=== PATIENT | male | born 1970 | race Caucasian/White ===

== ENCOUNTER 2017-01-15 15:00 | Inpatient (IN) | payer OTHER ==
--- NOTE | ~2017-01-15 | PN ---
Unit #: [id number] #: [id number] Patient: MALACHI VALENTIN [id number] [facility] [address] [place] [address] [id number] I MR#: [id number] NAME: MALACHI VALENTIN ROOM: P259 Age: 46 Sex: M Admission Date: 01/17/2017 : 1970 Attending Physician: Nicolás Randolph M.D. Admitting Physician: Nicolás Randolph M.D. Primary Care Physician: Generic Doctor Not In System [facility] PROGRESS NOTES DATE OF SERVICE: 01/18/2017 DISCUSSION Mr. Olsen is a 46-year-old male, seen on 01/18/2017. The patient interviewed, chart reviewed, and obtained information from the nursing staff. The patient was compliant, cooperative. Mood is sad, depressed, flat, isolative, guarded, but still very paranoid, delusional, passive SI. REVIEW OF SYSTEMS Complete review of systems unremarkable. MENTAL STATUS EXAMINATION General appearance, the patient dressed casually, lying comfortably in bed, withdrawn, isolative, sad and depressed mood. Speech, monotone. Thought process, concrete. The patient denied any active suicidal ideation, but passive SI, guarded, paranoid, delusional. Recent and remote memory, poor. Insight and judgment, poor. DIAGNOSES Psychosis, not otherwise specified. Schizophrenia, chronic, paranoid type. Major depressive disorder, recurrent. ASSESSMENT AND PLAN Advised to continue with current medication and therapeutic protocol. If needed, consider further adjustment of medication. Dictated by... Tom Nur/marichuy TD: 01/19/2017 11:44 JOB #: [id number] Unit #: [id number] #: [id number] Patient: MALACHI VALENTIN [facility] PROGRESS NOTES Page 1 of 1 X Nicolás Randolph MD PROGRESS NOTE
--- NOTE | ~2017-01-15 | PN ---
Unit #: [id number] #: [id number] Patient: TAMIA ALVARADO [id number] [facility] [address] [place] [address] [id number] I MR#: [id number] NAME: TAMIA ALVARADO ROOM: P259 Age: 46 Sex: M Admission Date: 01/17/2017 : 1970 Attending Physician: Nicolás Randolph M.D. Admitting Physician: Nicolás Randolph M.D. Primary Care Physician: Generic Doctor Not In System [facility] PROGRESS NOTES DATE OF SERVICE 01/20/2017 DISCUSSION Tamia Alvarado is a 46-year-old male seen on 01/20/2017. The patient continues to have psychotic symptom. Guarded, paranoid. Attending to internal stimuli. Delusional, but cooperative. No aggression. Hygiene and grooming fair. Compliant with medication. Complete Review of Systems: Unremarkable. MENTAL STATUS EXAMINATION General Appearance: The patient dressed casually in hospital attire. Attention span, concentration: Poor. Oriented in place and person. Mood and affect labile. Speech: Monotone. Thought process: [place]. The patient denied any thoughts of harming self or others but guarded, delusional, paranoid. Recent and remote memory: Poor. Insight and judgment: Poor. DIAGNOSES 1. Psychosis not otherwise specified. 2. Rule out schizophrenia, chronic, paranoid type. ASSESSMENT/PLAN Advised to continue with current medication and therapeutic protocol. If needed, consider further adjustment of medication. Dictated by... Tom Nur/yashira TD: 01/21/2017 10:17 JOB #: [id number] Unit #: [id number] #: [id number] Patient: TAMIA ALVARADO [facility] PROGRESS NOTES Page 1 of 1 X Nicolás Randolph MD PROGRESS NOTE
--- NOTE | ~2017-01-15 | PN ---
Unit #: [id number] #: [id number] Patient: TAMIA ALVARADO [id number] [facility] [address] [place] [address] [id number] I MR#: [id number] NAME: TAMIA ALVARADO ROOM: P259 Age: 46 Sex: M Admission Date: 01/17/2017 : 1970 Attending Physician: Nicolás Randolph M.D. Admitting Physician: Nicolás Randolph M.D. Primary Care Physician: Generic Doctor Not In System [facility] PROGRESS NOTES DATE 01/22/2017 DISCUSSION Tamia Alvarado is a 46-year-old male seen on 01/22/2017. The patient interviewed, chart reviewed. Obtained information from nursing staff. The patient denied any side effects from medication continues to be isolative, guarded, flat affect, minimal interaction with staff and peer but still somewhat guarded, paranoid but denied any thoughts of harming self or others. Complete review of systems unremarkable. MENTAL STATUS EXAMINATION General appearance, the patient hygiene and grooming poor dressed in hospital attire. Attention span and concentration poor. Oriented to place and person. Mood and affect labile. Speech monotone. Thought process concrete. The patient denied any thoughts of harming self or others but guarded paranoid isolative. Recent and remote memory poor. Insight and judgement poor. DIAGNOSES 1. Psychosis NOS 2. Schizophrenia chronic paranoid type ASSESSMENT/PLAN Advise to continue with current medication and therapeutic protocol. If needed consider further adjustment of medication. Dictated by... Tom Nur/michelle TD: 01/22/2017 23:44 JOB #: [id number] Unit #: [id number] #: [id number] Patient: TAMIA ALVARADO [facility] PROGRESS NOTES Page 1 of 1 X Nicolás Randolph MD PROGRESS NOTE
--- NOTE | ~2017-01-15 | HP ---
Unit #: [id number] #: [id number] Patient: TAMIA VALENTIN [id number] [place] [address] [id number] I MR#: [id number] NAME: TAMIA VALENTIN ROOM: P259 Age: 46 Sex: M Admission Date: 01/17/2017 : 1970 Attending Physician: Nicolás Randolph M.D. Admitting Physician: Nicolás Randolph M.D. Primary Care Physician: Generic Doctor Not In System HISTORY AND PHYSICAL HISTORY OF PRESENT ILLNESS Tamia is a 46 year old admitted to [address] [place] [address] with depression verbalizing wanting to hurt himself. PAST MEDICAL HISTORY 1. High blood pressure. 2. Obesity. 3. Hyperlipidemia. 4. Hypertensive cardiomyopathy. 5. Degenerative disk disease. PAST SURGICAL HISTORY Nothing reported. ALLERGIES No known drug allergies. SOCIAL HISTORY He denies cigarettes, alcohol, and illicit drug use. FAMILY HISTORY Medically noncontributory. REVIEW OF SYSTEMS CONSTITUTIONAL: No fever or chills. HEENT: Denies any sore throat, ear pain or runny nose. CARDIOVASCULAR: Denies chest pain, irregular heart rhythm or palpitations. CHEST: Denies shortness of breath or cough. No hemoptysis. GASTROINTESTINAL: Denies nausea, vomiting, diarrhea or chronic constipation. ENDOCRINE: Denies history of increased thirst or urination. No recent significant weight loss or gain. GENITOURINARY: Denies dysuria, frequency, or hematuria. SKIN: Denies any rashes. HEMATOLOGIC: Denies history of increased bleeding or bruising. MUSCULOSKELETAL: Denies any hot, swollen joints. No generalized muscle pain. NEUROLOGIC: Denies problems with vision or speech. No frequent, severe headaches. No numbness, tingling or weakness in any extremities. Denies loss of bladder or bowel control. CURRENT MEDICATIONS 1. Diovan 320 mg q. day. Unit #: [id number] #: [id number] Patient: TAMIA VALENTIN 2. Chlorthalidone 25 mg q. day. 3. Citalopram 10 mg q. day. 4. Amlodipine 10 mg q. day. 5. Zyprexa 10 mg b.i.d. 6. Normodyne 800 mg b.i.d. 7. Catapres 0.2 mg b.i.d. 8. Vistaril 25 mg t.i.d. 9. Milk of Magnesia p.r.n. 10. Maalox p.r.n. 11. Tylenol p.r.n. PHYSICAL EXAMINATION GENERAL: Alert, well nourished. No apparent distress. VITAL SIGNS: Blood pressure 156/100, heart rate 80, respirations 16, and temperature 98.6. WEIGHT: 210. HEIGHT: 5 feet 9 inches. SKIN: Warm and dry without rash or lesion. HEENT: Normocephalic. TMs not viewed. Oral and nasal passages clear. Conjunctivae clear. PERRLA. EOMs intact. NECK: Supple without lymphadenopathy or thyromegaly. HEART: Regular rate and rhythm without murmur. LUNGS: Clear. ABDOMEN: Soft, nontender. : Not done. EXTREMITIES: No evidence of cyanosis, clubbing or edema. Moves all without focal deficit. NEUROLOGICAL: Grossly within normal limits. Cranial Nerves: II: Visual rodriguez are intact. III, IV AND : Extraocular movements are intact. Pupils are equal, round and reactive to light. V: Facial sensation is grossly normal. VII: Facial movements and expression are normal. VIII: Auditory acuity grossly intact. IX, X: Uvula is midline. Phonation is normal. XI: Patient shrugs shoulders and turns head normally. XII: Tongue protrudes in the midline. Sensory and Motor Function: Sensory and motor sensation is grossly normal. Motor: moves all extremities well. Coordination: Gait is normal. Deep Tendon Reflexes: Intact. IMPRESSION Psychiatric admission. RECOMMENDATIONS PSYCHIATRIC: Per psychiatrist. MEDICAL: I see no contraindication to participate in this facility's activities. MEDICAL PROGNOSIS Good. MEDICAL CONDITION Stable. Dictated by... Tami Duque P.A.-C. for Unit #: [id number] #: [id number] Patient: LIZETTE VALENTINTom Pearl/yashira TD: 01/18/2017 08:16 JOB #: [id number] HISTORY AND PHYSICAL Page 1 of 1 X Tami Duque X HISTORY AND PHYSICAL
--- NOTE | ~2017-01-15 | DS ---
Unit #: [id number] #: [id number] Patient: MALACHI VALENTIN [id number] [place] [address] [id number] I MR#: [id number] NAME: MALACHI VALENTIN ROOM: P259 Age: 46 Sex: M Admission Date: 01/17/2017 : 1970 Discharge Date: 01/24/2017 Attending Physician: Nicolás Randolph M.D. Primary Care Physician: Generic Doctor Not In System DISCHARGE SUMMARY REASON FOR ADMISSION Depression, hearing voices. DIAGNOSTIC STUDIES LABORATORY DATA: Remarkable for urine drugs screen positive for opiate. HOSPITAL COURSE The patient was admitted to inpatient unit on January 17 and discharged on 01/24/2017. The patient was treated on the inpatient unit with psychotherapy, structured milieu, and medication management. The patient was responsive with treatment. Showed improvement in his mood and voices. Subsequently, the patient was discharged with a plan to follow up in outpatient program. DISCHARGE MEDICATIONS 1. Vistaril 25 mg 3 times a day for anxiety. 2. Zyprexa 10 mg twice daily for psychosis. 3. Haldol 5 mg twice daily for psychosis. 4. Cogentin 1 mg twice daily for EPS symptom. 5. Celexa 20 mg daily for depression. 6. The patient was discharged on 2 antipsychotics as the patient did not do well on one. The patient was started on Zyprexa, Haldol, and Risperdal in the past. 7. The patient plans to taper off Haldol once the patient is stable for at least 6 months. The patient is not a candidate for Clozaril at this time. DISCHARGE DIAGNOSES PSYCHIATRIC: Schizophrenia, chronic, paranoid type, F20.0 Mood disorder not otherwise specified, F32.9. SECONDARY: Deferred. MEDICAL: Malignant hypertension. Obesity. Hyperlipidemia. Hypertensive cardiomyopathy. Degenerative disk disease. STRESSORS: Psychosocial stressor. FOLLOWUP CARE The patient to follow up in outpatient clinic as per manager social work. CONDITION ON DISCHARGE The patient pleasant, cooperative. Denied any psychotic symptom or any suicidal ideation. Unit #: [id number] #: [id number] Patient: MALACHI VALENTIN PROGNOSIS Guarded. DIET AND ACTIVITY As tolerated. Dictated by... Nicolás Randolph M.D. ERENDIRA/yashira TD: 01/25/2017 11:54 JOB #: [id number] DISCHARGE SUMMARY Page 1 of 1 X Nicolás Randolph MD DISCHARGE SUMMARY
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
--- NOTE | ~2017-01-15 | PN ---
Unit #: [id number] #: [id number] Patient: TAMIA VALENTIN [id number] [facility] [address] [place] [address] [id number] MR#: [id number] NAME: TAMIA VALENTIN ROOM: P259 Age: 46 Sex: M Admission Date: 01/17/2017 : 1970 Attending Physician: Nicolás Randolph M.D. Admitting Physician: Nicolás Randolph M.D. Primary Care Physician: Generic Doctor Not In System [facility] PROGRESS NOTES DATE OF SERVICE 01/23/17 DISCUSSION Tamia is a 46-year-old male seen on 01/23/17. Patient interviewed, chart reviewed, I obtained information from nursing staff. Patient is still somewhat guarded, paranoid but overall making progress. Patient was sent out yesterday for increased blood pressure, for which he was monitored and advised to continue with the same medication. Patient's blood pressure was high 200/150, and later 200/112 but later dropped down to 113/89. COMPLETE REVIEW OF SYSTEMS Unremarkable. MENTAL STATUS EXAMINATION GENERAL APPEARANCE: Patient dressed casually. ATTENTION SPAN AND CONCENTRATION: Fair. Oriented in place and person. MOOD AND AFFECT: Sad, dysphoric. SPEECH: Monotone. THOUGHT PROCESS: [place]. Patient denied any thoughts of harming self or others, but still having paranoia, seclusive, isolative but denied any kind of hallucination. RECENT AND REMOTE MEMORY: Poor. INSIGHT AND JUDGMENT: Poor. DIAGNOSIS Schizophrenia, chronic, paranoid type ASSESSMENT/PLAN Advised to continue with current medication and therapeutic protocol. If needed, consider further adjustment in medication. Dictated by... Tom Nur/sandor TD: 01/23/2017 23:31 JOB #: [id number] Unit #: [id number] #: [id number] Patient: TAMIA VALENTIN [facility] PROGRESS NOT[facility] Page 1 of 1 X Nicolás Randolph MD PROGRESS NOTE
--- NOTE | ~2017-01-15 | PN ---
Unit #: [id number] #: [id number] Patient: TAMIA ALVARADO [id number] [facility] [address] [place] [address] [id number] I MR#: [id number] NAME: TAMIA ALVARADO ROOM: P259 Age: 46 Sex: M Admission Date: 01/17/2017 : 1970 Attending Physician: Nicolás Randolph M.D. Admitting Physician: Nicolás Randolph M.D. Primary Care Physician: Generic Doctor Not In System [facility] PROGRESS NOTES DATE OF SERVICE 01/21/2017 DISCUSSION Mr. Tamia Alvarado is a 46-year-old male seen on 01/21/2017. The patient interviewed, chart reviewed. Obtained information from nursing staff. The patient continues to be isolative, guarded, flat affect. Still paranoid, delusional, but no aggression. Still sad, depressed, and anxious. Complete Review of Systems: Unremarkable. MENTAL STATUS EXAMINATION General Appearance: The patient dressed casually in hospital attire. Attention span, concentration: Fair. Oriented in place and person. Mood and affect labile. Speech: Monotone. Thought process: [place]. The patient denied any thoughts of harming self or others but guarded, withdrawn, isolative, delusional, paranoid. Recent and remote memory: Poor. Insight and judgment: Poor. DIAGNOSIS Schizophrenia, chronic, paranoid type. ASSESSMENT/PLAN Advised to continue with current medication and therapeutic protocol. If needed, consider further adjustment of medication. Dictated by... Tom Nur/yashira TD: 01/22/2017 07:59 JOB #: [id number] Unit #: [id number] #: [id number] Patient: TAMIA ALVARADO [facility] PROGRESS NOT[facility] Page 1 of 1 X Nicolás Randolph MD PROGRESS NOTE
--- NOTE | ~2017-01-15 | PN ---
Unit #: [id number] #: [id number] Patient: TAMIA ALVARADO [id number] [facility] [address] [place] [address] [id number] I MR#: [id number] NAME: TAMIA ALVARADO ROOM: P259 Age: 46 Sex: M Admission Date: 01/17/2017 : 1970 Attending Physician: Nicolás Randolph M.D. Admitting Physician: Nicolás Randolph M.D. Primary Care Physician: Generic Doctor Not In System [facility] PROGRESS NOTES DATE OF SERVICE: 01/19/2017 DISCUSSION Mr. Tamia Alvarado is a 46-year-old male, seen on 01/19/2017. The patient interviewed, chart reviewed, and obtained information from nursing staff. The patient continues to be guarded, paranoid, isolative, flat affect, sad, dysphoric mood, using wheelchair to go around. The patient denied any side effects from medication. REVIEW OF SYSTEMS Complete review of systems unremarkable. MENTAL STATUS EXAMINATION General appearance; the patient's hygiene and grooming were poor. Attention span and concentration, fair. Oriented in place and person. Mood and affect, labile. Speech, monotone. Thought process, concrete. The patient denied any thoughts of harming self or others, but guarded and paranoid. Recent and remote memory, poor. Insight and judgment, poor. DIAGNOSES 1. Psychosis, not otherwise specified. 2. Rule out schizophrenia, chronic paranoid type. ASSESSMENT/PLAN Advised to continue with current medication and therapeutic protocol. If needed, consider further adjustment of medication. Dictated by... Tom Nur/marichuy TD: 01/21/2017 00:35 JOB #: [id number] Unit #: [id number] #: [id number] Patient: TAMIA ALVARADO PROGRESS NOTES Page 1 of 1 X Nicolás Randolph MD PROGRESS NOTE
[2017-01-18 09:42] LABS: URINE APPEARANCE CLEAR; URINE BILIRUBIN NEG (NEG); URINE BLOOD NEG (NEG); URINE COLOR YELLOW; URINE GLUCOSE NEG (NEG); URINE KETONE NEG (NEG); URINE LEUKOCYTE ESTERASE NEG (NEG); URINE NITRATE NEG (NEG); URINE PROTEIN NEG (NEG); URINE SPECIFIC GRAVITY 1.023 (1.003-1.035); URINE UROBILINOGEN 0.2 MG/DL (NEG)
[2017-01-18 10:40] LABS: AMPHETAMINE NEG (NEG); BARBITURATES NEG (NEG); BENZODIAZEPINES NEG (NEG); COCAINE NEG (NEG); MARIJUANA NEG (NEG); OPIATES POS (NEG); TRICYCLIC ANTIDEPRESSANTS NEG (NEG); U METHADONE NEG (NEG)
[2017-01-23] MEDS ORDERED: CLONIDINE PO (01:31)
[2017-01-23] MEDS ORDERED: NORVASC10 MG PO (01:31)
[2017-01-23] MEDS ORDERED: CHLORTHALIDONE25 MG PO (01:31)
[2017-01-23] MEDS ORDERED: NORMODYNE PO (01:32)
[2017-01-23] MEDS ORDERED: DIOVAN320 MG PO (01:32)
[2017-01-23] MEDS ORDERED: VISTARIL PO (01:32)
[2017-01-23] MEDS ORDERED: ZYPREXA10 MG PO (01:32)
[2017-01-23] MEDS ORDERED: HALDOL PO (01:33)
[2017-01-23] MEDS ORDERED: CELEXA20 MG PO (01:33)
[2017-01-23] MEDS ORDERED: COGENTIN1 MG PO (01:33)
== END 2017-01-24 14:55 | disposition home or self-care (01) | DRG 885 ==
LOC: P2L 01-17 12:49
PROVIDERS: Psychiatry & Neurology Psychiatry
DX: F20.0 Paranoid schizophrenia (principal); F33.2 Major depressive disorder, recurrent severe without psychotic features; I11.9 Hypertensive heart disease without heart failure; I10 Essential (primary) hypertension; F39 Unspecified mood [affective] disorder; E66.9 Obesity, unspecified; E78.5 Hyperlipidemia, unspecified
CPT/HCPCS: 80307; 81003

== ENCOUNTER 2017-01-23 01:08 | Emergency (ER) | payer OTHER ==
--- NOTE | ~2017-01-23 | EKG ---
PATIENT: MALACHI VALENTIN UNIT #: [id number] Ventricular Rate: 69 BPM Atrial Rate: 69 BPM P-R Interval: 178 ms QRS Duration: 98 ms Q-T Interval: 430 ms QTC Calculation(Bezet): 460 ms P Townsend: 22 degrees Calculated R Townsend: -10 degrees Calculated T Townsend: 25 degrees Diagnosis Line: Normal sinus rhythm Diagnosis Line: Normal ECG Diagnosis Line: No previous ECGs available Diagnosis Line: Confirmed by BRI ZIMMERMAN MD ([id number]) on Diagnosis Line: 01/23/2017 10:46:35 PM INTERPRETING MD: ALVARO
--- NOTE | ~2017-01-23 | CR72 ---
[facility] A Service of [facility] & [facility] RADIOLOGY TEXT RESULTS PATIENT: MALACHI VALENTNI LOCATION: [facility] : [birth year] UNIT #: [id number] AGE: [address]: Tami Perez APRN SEX: M ORDER DR: [id number] [facility] [address] [place], [place] [address] [id number] MR#: [id number] Acc #: [id number] NAME: MALACHI VALENTIN : 1970 SEX: M STUDY DATE/TIME: 01/23/2017 1:58 UNIT: [facility] ROOM: STUDY DESCRIPTION: CR Chest Single View Portable Attending Physician: Tami Perez A.P.R.N. Ordering Physician: Tami Perez A.P.R.N. Primary Care Physician: Generic Doctor Not In System MEDICAL IMAGING REPORT This report is preliminary unless electronic signature is present EXAM Portable chest INDICATION Hypertension today. PROCEDURE Frontal view chest. COMPARISON 01/03/2017 FINDINGS Heart size unremarkable. No dense consolidation, pleural fluid or pneumothorax. IMPRESSION No active process. Dictated by... uT Chavira M.D. THIS IS AN ELECTRONICALLY VERIFIED REPORT Tu Chavira M.D. at 01/23/2017 10:21 PM TAYLOR/charu TD: 01/23/2017 04:04 JOB #: [id number] MEDICAL IMAGING REPORT Page 1 of 1 COPY
[2017-01-23] MEDS ORDERED: CLONIDINE PO (01:31)
[2017-01-23] MEDS ORDERED: NORVASC10 MG PO (01:31)
[2017-01-23] MEDS ORDERED: CHLORTHALIDONE25 MG PO (01:31)
[2017-01-23] MEDS ORDERED: NORMODYNE PO (01:32)
[2017-01-23] MEDS ORDERED: DIOVAN320 MG PO (01:32)
[2017-01-23] MEDS ORDERED: ZYPREXA10 MG PO (01:32)
[2017-01-23] MEDS ORDERED: VISTARIL PO (01:32)
[2017-01-23] MEDS ORDERED: CELEXA20 MG PO (01:33)
[2017-01-23] MEDS ORDERED: COGENTIN1 MG PO (01:33)
[2017-01-23] MEDS ORDERED: HALDOL PO (01:33)
[2017-01-23 03:02] LABS: POC - CKMB <1.0 ng/mL (0.0-7.9); POC - TROPONIN <0.05 ng/mL (<=0.05)
[2017-01-23 03:13] LABS: BASOPHIL% 0.7 % (0-2.5); EOSINOPHIL# 0.3 X10e3 (0-0.7); EOSINOPHIL% 4.6 % (0.0-7.0); HEMATOCRIT 38.1 % (38.0-50.0); HEMOGLOBIN 12.8 gm/dL (13.0-16.0); LYMPHOCYTE# 2.3 X10e3 (1.0-3.5); LYMPHOCYTE% 38.8 % (17.0-45.0); MEAN CELL VOLUME 86.6 FL (83-96); MEAN CORPUSCULAR HGB CONC 33.5 g/dL (30-36); MEAN PLATELET VOLUME 7.7 FL (6.5-11.5); MONOCYTE# 0.6 X10e3 (0-1.0); MONOCYTE% 9.4 % (3.0-12.0); NEUTROPHIL# 2.8 X10e3 (1.5-7.1); NEUTROPHIL% 46.5 % (40-75); PLATELET COUNT 233 X10e3 (140-420); RED CELL DISTRIBUTION WIDTH 13.7 % (11.0-15.5)
[2017-01-23 03:14] LABS: DIFF IND NO
[2017-01-23 03:36] LABS: ALBUMIN SERUM 3.8 g/dL (3.5-5.0); BILIRUBIN, DIRECT 0.1 mg/dL (0.0-0.2); BILIRUBIN,INDIRECT 0.4 mg/dL (0.0-0.9); BILIRUBIN,TOTAL 0.5 mg/dL (0.2-2.0); GLOM FILT RATE Estimated 89.2 mL/min (>60); POTASSIUM 3.7 mmol/L (3.5-5.1); PROTEIN TOTAL SERUM 6.7 g/dL (6.0-8.3)
== END 2017-01-23 04:00 | disposition short-term general hospital (02) ==
LOC: CED 01:08
PROVIDERS: Nurse Practitioner
DX: I10 Essential (primary) hypertension (principal); F41.9 Anxiety disorder, unspecified
CPT/HCPCS: 36415; 71010; 80048; 80076; 82553; 83690; 84484; 85025; 93005; 99285

== ENCOUNTER 2017-01-26 18:03 | Inpatient (IN) | payer OTHER ==
--- NOTE | ~2017-01-26 | PN ---
Unit #: [id number] #: [id number] Patient: MALACHI ALVARADO [id number] [facility] [address] [place] [address] [id number] I MR#: [id number] NAME: MALACHI ALVARADO ROOM: [facility] Age: 46 Sex: M Admission Date: 01/26/2017 : 1970 Attending Physician: Nioclás Randolph M.D. Admitting Physician: Nicolás Randolph M.D. Primary Care Physician: Generic Doctor Not In System [facility] PROGRESS NOTES DATE 01/30/2017 DISCUSSION Mr. Alvarado is a 46-year-old, white male who was seen today and chart was reviewed and case was discussed with the staff. He has been anxious, withdrawn, depressed and rather seclusive to himself. Meanwhile, he has been taking medications and tolerating them fairly well with no reported side effects. MENTAL STATUS EXAM Middle-aged white male who was casually dressed with fair personal hygiene, appears to be in no acute distress or discomfort. He was awake and alert on interaction with intact orientation. His mood was anxious with congruent affect. He denies any suicidal or homicidal ideation. His insight and judgement remains slightly impaired. TREATMENT PLAN We will continue him on his current treatment protocol. We will monitor his response and make further adjustments as needed. Dictated by... Tom Thomas/michelle TD: 02/01/2017 03:29 JOB #: [id number] [facility] PROGRESS NOTES Page 1 of 1 X Fani Moreland MD X PROGRESS NOTE
--- NOTE | ~2017-01-26 | PA ---
Unit #: [id number] #: [id number] Patient: TAMIA ALVARADO [id number] [facility] [address] [place] [address] [id number] I MR#: [id number] NAME: TAMIA ALVARADO ROOM: [facility] Age: 46 Sex: M Admission Date: 01/26/2017 : 1970 Date of Assessment: 01/27/2017 Attending Physician: Nicolás Randolph M.D. Admitting Physician: Nicolás Randolph M.D. Primary Care Physician: Generic Doctor Not In System PSYCHIATRIC ASSESSMENT INFORMANTS The patient reliability, fair informant and chart reliability, good. CHIEF COMPLAINT Suicidal ideation and hallucination. HISTORY OF PRESENT ILLNESS Mr. Tamia Alvarado is a 46-year-old male, seen on with the above-mentioned complaint. The patient well known to us from his previous admission. The patient was last admitted on 01/15/2017 and the patient was discharged on 01/24/2017, admitted due to above-mentioned symptoms. The patient reports that he never got his medication filled. Reports that he has been off from medication for the last 2 days. Reported experiencing paranoia and that his brother's friends are going to kill him to obtain his organs. The patient reports that his brother is in hell and needs the patient's heart to resuscitate. The patient reports that the brother talks to him in his dreams as well as when he is awake. The patient reports that his brother tells him to kill himself. The patient reports suicidal ideation with a plan to overdose on the pills or cut his wrist. Needing inpatient admission at this time for psychiatric stabilization. PAST PSYCHIATRIC HISTORY Remarkable for history of previous treatment, last admission was on 01/18/2017. FAMILY HISTORY AND SOCIAL HISTORY The patient has a poor support system. Currently, unemployed. Unstable housing situation. No known history of any abuse. MEDICAL HISTORY Remarkable for history of malignant hypertension, obesity, hyperlipidemia, hypertensive cardiomyopathy, and degenerative disk disease. Musculoskeletal; muscle strength and tone, no atrophy or abnormal movement. Gait abnormal, using a wheelchair. MEDICATION HISTORY The patient is on Zanaflex, Normodyne, Catapres, Cogentin, haloperidol, Zyprexa, Vistaril, Diovan, amlodipine, Celexa, and chlorthalidone. ALLERGIES No known drug allergies. Unit #: [id number] #: [id number] Patient: TAMIA ALVARADO SUBSTANCE ABUSE HISTORY None. REVIEW OF SYSTEMS HEENT: Eyes, clear. Ears, nose, mouth, and throat; clear. CARDIOVASCULAR: Unremarkable. RESPIRATORY: Unremarkable. GI: Unremarkable. : Unremarkable. SKIN: Unremarkable. LYMPH NODE: Unremarkable. NEUROLOGIC: Unremarkable. ENDOCRINE: Unremarkable. HEMATOLOGIC: Unremarkable. ALLERGIC/IMMUNOLOGIC: Unremarkable. MUSCULOSKELETAL: Muscle strength and tone, no atrophy or abnormal movement. Gait normal. MENTAL STATUS EXAMINATION CONSTITUTIONAL: Measurement of vital signs; temperature 98.4, respiratory rate 74, respiratory rate 16, oxygen saturation 97%, and blood pressure 143/87. Height 5 feet 9 inches and weight 212 pounds. GENERAL APPEARANCE: The patient dressed casually. No facial deformity noted. MUSCULOSKELETAL: Please see above. PSYCHIATRIC EXAMINATION Description of speech, slow in volume and rate. Description of thought process, goal directed. Description of association, intact. Description of abnormal psychotic thinking; guarded, paranoid, delusional, visual and auditory hallucination, and suicidal ideation. Description of the patient's judgment: Concerning everyday activity, poor. Social situation, poor. Concerning psychiatric condition, poor. Complete mental status examination; oriented in time, place, and person. Recent and remote memory, fair. Attention span and concentration, fair. Language, able to name object and repeat phrases. Fund of knowledge, aware of current event and passive vocabulary intact. Mood and affect, sad and dysphoric. Insight and judgment, fair to poor. ASSETS AND LIABILITIES Assets, the patient is articulate and able to take care of his ADL. Liability, history of psychosis and depression. ADMITTING DIAGNOSES Psychiatric: Schizophrenia, chronic paranoid type, F20.0; mood disorder, not otherwise specified; rule out major depressive disorder, recurrent, severe; and rule out bipolar mood disorder. Secondary diagnosis: Deferred. Medical diagnoses: Malignant hypertension, obesity, hyperlipidemia, hypertensive cardiomyopathy, and degenerative disk disease. Stressors: Psychosocial stressors. PSYCHIATRIC PLAN AND TREATMENT GOAL AND DISCHARGE PLAN 1. Advised to admit the patient on the inpatient unit. Provide safe, Unit #: [id number] #: [id number] Patient: TAMIA ALVARADO supportive, and structured environment. 2. Ordered labs; CBC, CMP, UA, and UDS. 3. Precaution for self-harm and special observation for psychosis. 4. Advised to resume home medication. If needed, consider further adjustment of medication. The patient to attend all the programing, group therapy, individual therapy, and family session if possible. TREATMENT GOAL To attain euthymic mood, gain insight into his problem, and learn coping skills. DISCHARGE PLAN Plan to stabilize the patient and consider followup in outpatient program. ESTIMATED LENGTH OF STAY 5 days. Dictated by... Nicolás Randolph M.D. ERENDIRA/marichuy TD: 01/27/2017 15:58 JOB #: [id number] PSYCHIATRIC ASSESSMENT Page 1 of 1 X Nicolás Randolph MD X PSYCHIATRIC ASSESSMENT
--- NOTE | ~2017-01-26 | PN ---
Unit #: [id number] #: [id number] Patient: MALACHI ALVARADO [id number] [facility] [address] [place] [address] [id number] I MR#: [id number] NAME: MALACHI ALVARADO ROOM: [facility] Age: 46 Sex: M Admission Date: 01/26/2017 : 1970 Attending Physician: Nicolás Randolph M.D. Admitting Physician: Nicolás Randolph M.D. Primary Care Physician: Generic Doctor Not In System [facility] PROGRESS NOTES DATE OF SERVICE 01/28/2017 DISCUSSION Edjoan Alvarado is a 46-year-old white male with history of mood disorder who was seen today. Chart was reviewed and case was discussed with the staff. He has been anxious and withdrawn though has not shown any agitation or irritability and has been cooperative with treatment recommendations as he has been taking the medications and tolerating them fairly well with no reported side effects. MENTAL STATUS EXAMINATION Middle-aged white male who is casually dressed with fair personal hygiene, appears to be in no acute distress or discomfort. He was awake and alert with intact orientation. His mood is anxious with congruent affect. He denies any suicidal or homicidal ideations. His insight and judgment remain slightly impaired. TREATMENT PLAN 1. We will continue him on his current medications and treatment protocol. We will monitor his response to the medications and make further adjustments as needed. 2. We will continue to follow up. Dictated by... Fani Moreland M.D. IAA/bzg TD: 01/28/2017 14:32 JOB #: [id number] Unit #: [id number] #: [id number] Patient: MALACHI ALVARADO [facility] PROGRESS NOTES Page 1 of 1 X Fani Moreland MD X PROGRESS NOTE
--- NOTE | ~2017-01-26 | PN ---
Unit #: [id number] #: [id number] Patient: MALACHI ALVARADO [id number] [facility] [address] [place] [address] [id number] I MR#: [id number] NAME: MALACHI ALVARADO ROOM: [facility] Age: 46 Sex: M Admission Date: 01/26/2017 : 1970 Attending Physician: Nicolás Randolph M.D. Admitting Physician: Nicolás Randolph M.D. Primary Care Physician: Generic Doctor Not In System [facility] PROGRESS NOTES DATE February 03, 2017 DISCUSSION Mr. Alvarado is a 46-year-old white male, who was seen today and chart was reviewed and the case was discussed with the staff. He has been anxious, withdrawn, and rather seclusive to himself. Meanwhile, he has been cooperative with the treatment recommendations and he has been taking the medications and tolerating them fairly well with no reported side effects. MENTAL STATUS EXAMINATION Middle-aged white male, who was casually dressed with fair personal hygiene and appears to be in no acute distress or discomfort. He was awake and alert on interaction with intact orientation. His mood is anxious with a congruent affect. His speech is slow and goal-directed. He denies any suicidal or homicidal ideations. His insight and judgment remain slightly impaired. TREATMENT PLAN 1. We will continue him on his current medications and treatment protocol, and will monitor his response to the medications, and make further adjustments as needed. 2. We will continue to followup. Dictated by... Tom Thomas/josue TD: 02/03/2017 09:47 JOB #: [id number] Unit #: [id number] #: [id number] Patient: MALACHI ALVARADO [facility] PROGRESS NOTES Page 1 of 1 X Fani Moreland MD PROGRESS NOTE
--- NOTE | ~2017-01-26 | HP ---
Unit #: [id number] #: [id number] Patient: MALACHI VALENTIN [id number] [place] [address] [id number] I MR#: [id number] NAME: MALACHI VALENTIN ROOM: [facility] Age: 46 Sex: M Admission Date: 01/26/2017 : 1970 Attending Physician: Nicolás Randolph M.D. Admitting Physician: Nicolás Randolph M.D. Primary Care Physician: Generic Doctor Not In System HISTORY AND PHYSICAL Edjoan is a 46 year old admitted to [address] [place] [address]. He was just discharged from this facility. He did not fill his psychiatric medications that were prescribed to him at the time of his discharge. Patient was seen and H and P dated 01/17/17 was reviewed. This is current. No changes. Please see H and P dated 01/17/17. Dictated by... Tami Duque P.A.-C. for Tom Bagley/gris TD: 01/27/2017 16:25 JOB #: [id number] HISTORY AND PHYSICAL Page 1 of X Tami Duque HISTORY AND PHYSICAL
--- NOTE | ~2017-01-26 | PN ---
Unit #: [id number] #: [id number] Patient: MALACHI ALVARADO [id number] [facility] [address] [place] [address] [id number] I MR#: [id number] NAME: MALACHI ALVARADO ROOM: [facility] Age: 46 Sex: M Admission Date: 01/26/2017 : 1970 Attending Physician: Nicolás Randolph M.D. Admitting Physician: Nicolás Randolph M.D. Primary Care Physician: Generic Doctor Not In System [facility] PROGRESS NOTES DATE January 31, 2017 DISCUSSION Mr. Alvarado is a 46-year-old white male, who was seen today, in coverage for Dr. Randolph, and chart was reviewed and the case was discussed with the staff. Staff called me yesterday stating that the patient was trying to hang himself with bed sheets, and has been seclusive, isolative, and not opening up until he was caught attempting suicide and since then he has been moved to a private camera monitored room and suicide precautions have been elevated as he reports that he does not feel that the medications have been helping him, and a review of the medical records indicates that he is taking quite a few of psychotropic medications including antipsychotic medications and has been blunting his affect and not letting his depression to be any better. He denies any suicidal thoughts; however, this morning, and I will go ahead and review his medications and adjust the medications and recommend maintaining Zyprexa and discontinuing Haldol and Cogentin, and increase his Celexa from 20 to 40 mg a day and will monitor his response, and make further adjustments as needed. Dictated by... Tom Thomas/josue TD: 02/01/2017 08:46 JOB #: [id number] [facility] PROGRESS NOTES Page 1 of 1 X Fani Moreland MD PROGRESS NOTE
--- NOTE | ~2017-01-26 | PN ---
Unit #: [id number] #: [id number] Patient: MALACHI ALVARADO [id number] [facility] [address] [place] [address] [id number] I MR#: [id number] NAME: MALACHI ALVARADO ROOM: [facility] Age: 46 Sex: M Admission Date: 01/26/2017 : 1970 Attending Physician: Nicolás Randolph M.D. Admitting Physician: Nicolás Randolph M.D. Primary Care Physician: Generic Doctor Not In System [facility] PROGRESS NOTES DATE February 01, 2017 DISCUSSION Mr. Alvarado is a 46-year-old white male, who was seen today and chart was reviewed and the case was discussed with the staff. He has been anxious, withdrawn, and rather seclusive to himself. Meanwhile, he has been cooperative with the treatment recommendations, and he has been exhibiting some persistent depressive symptoms. MENTAL STATUS EXAMINATION Middle-aged white male, who was casually dressed with fair personal hygiene and appears to be in no acute distress or discomfort. He was awake and alert on interaction with intact orientation. His mood is anxious with a congruent affect. He denies any suicidal or homicidal ideations, and also denies any auditory or visual hallucinations. His insight and judgment remain slightly impaired. TREATMENT PLAN We will continue him on his current medications and treatment protocol, and will monitor his response to the medications, and make further adjustments as needed. Dictated by... Tom Thomas/josue TD: 02/02/2017 10:59 JOB #: [id number] [facility] PROGRESS NOTES Page 1 of 1 X Fani Moreland MD PROGRESS NOTE
--- NOTE | ~2017-01-26 | DS ---
Unit #: [id number] #: [id number] Patient: [facility]VARADO [id number] [facility] [address] [place] [address] [id number] I MR#: [id number] NAME: MALACHI ALVARADO ROOM: [facility] Age: 46 Sex: M Admission Date: 01/26/2017 : 1970 Discharge Date: 02/04/2017 Attending Physician: Nicolás Randolph M.D. Primary Care Physician: Generic Doctor Not In System DISCHARGE SUMMARY IDENTIFICATION DATA Mr. Alvarado is a 46-year-old white male who was self-referred to the hospital. DISCHARGE DIAGNOSES PSYCHIATRIC: Schizoaffective disorder bipolar type, most recent episode, depressed, recurrent, moderate, without psychotic features. MEDICAL: None. STRESSORS: Moderate psychosocial stressors. HISTORY OF PRESENT ILLNESS Same as in initial psychiatric evaluation. PAST PSYCHIATRIC HISTORY Same as in initial psychiatric evaluation. PAST MEDICAL HISTORY Same as in initial psychiatric evaluation. HOSPITAL COURSE The patient was admitted to the adult psychiatric unit at [facility] sara Fowler and was oriented to the hospital environment. Routine p.r.n. medications were initiated, and he was started back on his home medications. Medications were adjusted, and he was closely monitored. He was taking the medications regularly and was tolerating them fairly well and able to show a decent therapeutic response with improvement in depression and anxiety. As such it was decided that he will be discharged, and we will continue treatment on outpatient basis. CONDITION AT DISCHARGE Stable. PROGNOSIS Fair. Dictated by... Tom Thomas/yashira TD: 02/26/2017 13:46 JOB #: [id number] Unit #: [id number] #: [id number] Patient: MALACHI ALVARADO DISCHARGE SUMMARY Page 1 of 1 X Fani Moreland MD X DISCHARGE SUMMARY
--- NOTE | ~2017-01-26 | PN ---
Unit #: [id number] #: [id number] Patient: MALACHI ALVARADO [id number] [facility] [address] [place] [address] [id number] I MR#: [id number] NAME: MALACHI ALVARADO ROOM: [facility] Age: 46 Sex: M Admission Date: 01/26/2017 : 1970 Attending Physician: Nicolás Randolph M.D. Admitting Physician: Nicolás Randolph M.D. Primary Care Physician: Generic Doctor Not In System [facility] PROGRESS NOTES DATE 02/02/2017 DISCUSSION Mr. Alvarado is a 46-year-old white male who was seen today and chart was reviewed and case was discussed with the staff. He has been anxious, withdrawn and rather seclusive to himself. Meanwhile, he has been cooperative with treatment recommendations and taking medications and tolerating them fairly well with no reported side effects. MENTAL STATUS EXAMINATION Middle-aged white male who was casually dressed with fair personal hygiene and appears to be in no acute distress or discomfort. He was awake and alert on interaction with intact orientation. His mood was anxious with congruent affect. He denies any suicidal or homicidal ideation. His insight and judgement remains slightly impaired. TREATMENT PLAN 1. Will continue his current medications and treatment protocol as well as level of precautions. Will monitor his response and make further adjustments as needed. 2. Will continue to follow up. Dictated by... Fani Moreland M.D. STAN/gris TD: 02/02/2017 20:14 JOB #: [id number] Unit #: [id number] #: [id number] Patient: MALACHI ALVARADO [facility] PROGRESS NOTES Page 1 of 1 X Fani Moreland MD X PROGRESS NOTE
--- NOTE | ~2017-01-26 | PN ---
Unit #: [id number] #: [id number] Patient: MALACHI ALVARADO [id number] [facility] [address] [place] [address] [id number] I MR#: [id number] NAME: MALACHI ALVARADO ROOM: [facility] Age: 46 Sex: M Admission Date: 01/26/2017 : 1970 Attending Physician: Nicolás Randolph M.D. Admitting Physician: Nicolás Randolph M.D. Primary Care Physician: Generic Doctor Not In System [facility] PROGRESS NOTES DATE 01/29/2017 DISCUSSION Mr. Alvarado is a 46-year-old white male who was seen today and chart was reviewed and case was discussed with the staff. He has been anxious, withdrawn, depressed and rather seclusive to himself. Meanwhile, he has been cooperative with treatment recommendations and has been taking medications and tolerating them fairly well with no reported side effects. MENTAL STATUS EXAMINATION Middle-aged white male who was casually dressed with fair personal hygiene and appears to be in no acute distress or discomfort. He was awake and alert with intact orientation. His mood was anxious with congruent affect. He denies any suicidal or homicidal ideations. His insight and judgement remains slightly impaired. TREATMENT PLAN 1. Will continue on his current medications and treatment protocol. Will monitor his response to the medications and make further adjustments as needed. 2. Will continue to follow up. Dictated by... Fani Moreland M.D. IAA/gris TD: 01/29/2017 21:50 JOB #: [id number] Unit #: [id number] #: [id number] Patient: MALACHI ALVARADO [facility] PROGRESS NOTES Page 1 of 1 X Fani Moreland MD X PROGRESS NOTE
--- NOTE | ~2017-01-26 | PN ---
Unit #: [id number] #: [id number] Patient: TAMIA ALVARADO [id number] [facility] [address] [place] [address] [id number] I MR#: [id number] NAME: TAMIA ALVARADO ROOM: [facility] Age: 46 Sex: M Admission Date: 01/26/2017 : 1970 Attending Physician: Nicolás Randolph M.D. Admitting Physician: Nicolás Randolph M.D. Primary Care Physician: Generic Doctor Not In System [facility] PROGRESS NOTES DATE OF SERVICE 01/27/2017 DISCUSSION Tamia Alvarado is a 46-year-old male seen on 01/27/2017. The patient continues to report hearing voices, paranoia, suicidal ideation, withdrawn, isolative, sad, dysphoric. Needing prompts to take care of his ADL as well as to attend group. Complete Review of Systems: Unremarkable. MENTAL STATUS EXAMINATION General Appearance: The patient dressed casually. Attention span, concentration: Fair. Oriented in time, place, and person. Mood and affect: Sad, depressed, withdrawn. Speech: Monotone. Thought process: [place]. The patient reported having suicidal ideation, paranoia, and delusions, auditory or visual hallucinations. Recent and remote memory: Poor. Insight and judgment: Poor. Vital Signs: 98.4, 83, 16, 192/99. Height: 5 feet 9 inches. Weight: 212 pounds. DIAGNOSES 1. Psychosis not otherwise specified. 2. Rule out schizophrenia, chronic, paranoid type. 3. Rule out bipolar mood disorder not otherwise specified. ASSESSMENT/PLAN Advised to continue with current medication and therapeutic protocol. If needed, consider further adjustment of medication. Dictated by... Tom Nur/yashira TD: 01/27/2017 13:51 JOB #: [id number] Unit #: [id number] #: [id number] Patient: TAMIA ALVARADO PROGRESS NOTES Page 1 of 1 X Nicolás Randolph MD PROGRESS NOTE
[~2017-01-26 18:03] MED LIST: CELEXA20 MG PO; CHLORTHALIDONE25 MG PO; CLONIDINE PO; COGENTIN1 MG PO; DIOVAN320 MG PO; HALDOL PO; NORMODYNE PO; NORVASC10 MG PO; VISTARIL PO; ZYPREXA10 MG PO
== END 2017-02-04 00:56 | disposition short-term general hospital (02) | DRG 885 ==
LOC: P1S 19:20
DX: F20.0 Paranoid schizophrenia (principal); F33.2 Major depressive disorder, recurrent severe without psychotic features; I11.9 Hypertensive heart disease without heart failure; R45.851 Suicidal ideations; I10 Essential (primary) hypertension; F39 Unspecified mood [affective] disorder; E78.5 Hyperlipidemia, unspecified; E66.9 Obesity, unspecified; Z68.31 Body mass index [BMI] 31.0-31.9, adult

== ENCOUNTER 2017-03-16 15:00 | Inpatient (IN) | payer OTHER ==
[~2017-03-16] VITALS: Ht 175.3 cm; Wt 98.9 kg
--- NOTE | ~2017-03-16 | DS ---
Unit #: [id number] #: [id number] Patient: MALACHI VALENTIN [id number] [facility] [address] [place] [address] [id number] I MR#: [id number] NAME: MALACHI VALENTIN ROOM: [facility] Age: 46 Sex: M Admission Date: 03/17/2017 : 1970 Discharge Date: 03/21/2017 Attending Physician: Nicolás Randolph M.D. Primary Care Physician: Generic Doctor Not In System DISCHARGE SUMMARY REASON FOR ADMISSION Hearing voices and paranoia. DIAGNOSTIC STUDIES LABORATORY RESULTS: Urine drug screen positive for opioids. HOSPITAL COURSE The patient was admitted to inpatient unit on 03/17/2017 and discharged on 03/21/2017. The patient was treated with group therapy, individual therapy, and medication management. The patient was responsive to treatment. Subsequently, the patient was discharged with a plan to follow up in outpatient program. DISCHARGE MEDICATIONS Cogentin 2 mg at bedtime for EPS symptom, Zoloft 100 mg daily for depression, Zyprexa 10 mg daily for mood stabilization, trazodone 100 mg at bedtime for sleep, and Vistaril 25 mg t.i.d. for anxiety. DISCHARGE DIAGNOSES Psychiatric: Schizophrenia, chronic paranoid type, F20.0; mood disorder, not otherwise specified, F32.9; rule out bipolar mood disorder; and opioid use disorder, F11.20. Secondary diagnosis: Deferred. Medical diagnoses: History of malignant hypertension, obesity, hyperlipidemia, hypertensive cardiomyopathy, and degenerative disk disease. Stressors: Psychosocial stressors. DISCHARGE INSTRUCTIONS The patient to follow up in outpatient clinic as per social security benefits interviewer. CONDITION ON DISCHARGE The patient was pleasant and cooperative. Denied any psychotic symptom or any suicidal ideation. PROGNOSIS Guarded. DIET AND ACTIVITY As tolerated. Unit #: [id number] #: [id number] Patient: MALACHI VALENTIN Dictated by... Tom NurC/marichuy TD: 03/21/2017 13:38 JOB #: [id number] DISCHARGE SUMMARY Page 1 of 1 X Nicolás Randolph MD X DISCHARGE SUMMARY
--- NOTE | ~2017-03-16 | PA ---
Unit #: [id number] #: [id number] Patient: MALACHI VALENTIN [id number] [facility] [address] [place] [address] [id number] I MR#: [id number] NAME: MALACHI VALENTIN ROOM: 30 Age: 46 Sex: M Admission Date: 03/17/2017 : 1970 Date of Assessment: Attending Physician: Nicolás Randolph M.D. Admitting Physician: Nicolás Randolph M.D. PSYCHIATRIC ASSESSMENT INFORMANTS The patient reliability, fair informant and chart reliability, good. CHIEF COMPLAINT Hearing voices. HISTORY OF PRESENT ILLNESS Mr. Cantrell is a 46-year-old male, well known to us from his previous admission in 12/2017, who presented with the above-mentioned complaint. The patient currently unemployed. Reported having auditory hallucination, telling him to kill himself by cutting his wrist or hang himself. The patient denied any homicidal ideation. Reported compliant with medication. The patient diagnosed with schizophrenia. The patient reported amphetamine use, age of onset 31. Longest period of sobriety 7 months and last period of sobriety recently. The patient reported history of blackout and feeling sad and depressed. Needing inpatient admission at this time for psychiatric stabilization. PAST PSYCHIATRIC HISTORY Remarkable for history of previous treatment as mentioned above. FAMILY HISTORY AND SOCIAL HISTORY The patient has a poor support system, currently unemployed, unstable housing situation. No history of any abuse. No legal problem. MEDICAL HISTORY Remarkable for history of malignant hypertension, obesity, hyperlipidemia, hypertensive cardiomyopathy, and degenerative disk disease. Musculoskeletal; muscle strength and tone, no atrophy or abnormal movement. Gait, unable to test in bed. MEDICATION HISTORY The patient is on hydralazine, Catapres, Zoloft, Procardia, spironolactone, Coreg, Zanaflex, and Cogentin. ALLERGIES No known drug allergies. SUBSTANCE ABUSE HISTORY None. REVIEW OF SYSTEMS HEENT: Eyes, clear. Ears, nose, mouth, and throat; clear. Unit #: [id number] #: [id number] Patient: MALACHI VALENTIN CARDIOVASCULAR: Unremarkable. RESPIRATORY: Unremarkable. GI: Unremarkable. : Unremarkable. SKIN: Unremarkable. LYMPH NODE: Unremarkable. NEUROLOGIC: Unremarkable. ENDOCRINE: Unremarkable. HEMATOLOGIC: Unremarkable. ALLERGIC/IMMUNOLOGIC: Unremarkable. MUSCULOSKELETAL: Muscle strength and tone, no atrophy or abnormal movement. Gait normal. MENTAL STATUS EXAMINATION CONSTITUTIONAL: Measurement of vital signs; temperature 98.0, heart rate 106, respiratory rate 16, oxygen saturation 97%, and blood pressure 161/91. Height 5 feet 9 inches and weight 218 pounds. GENERAL APPEARANCE: The patient dressed casually. No facial deformity noted. MUSCULOSKELETAL: Please see above. PSYCHIATRIC EXAMINATION Description of speech, slow in volume and rate. Description of thought process, goal directed. Description of association, intact. Description of abnormal psychotic thinking; the patient sad, depressed, guarded, paranoid, and having suicidal ideation. Description of the patient's judgment: Concerning everyday activity, poor. Social situation, poor. Concerning psychiatric condition, poor. Complete mental status examination; oriented in time, place, and person. Recent and remote memory, fair. Attention span and concentration, fair. Language, able to name object and repeat phrases. Fund of knowledge, fair. Vocabulary, intact. Mood and affect, sad and dysphoric. Insight and judgment, fair to poor. ASSETS AND LIABILITIES Assets, the patient is articulate and able to take care of his ADL. Liability, history of psychosis and depression. ADMITTING DIAGNOSES Psychiatric: Schizophrenia, chronic paranoid type, F20.0; mood disorder, not otherwise specified, F32.9; and rule out bipolar mood disorder. Secondary diagnosis: Deferred. Medical diagnoses: History of malignant hypertension, obesity, hyperlipidemia, hypertensive cardiomyopathy, and degenerative disk disease. Stressors: Psychosocial stressors. PSYCHIATRIC PLAN AND TREATMENT GOAL AND DISCHARGE PLAN 1. Advised to admit the patient on the inpatient unit. Provide safe, supportive, and structured environment. 2. Ordered labs; CBC, CMP, UA, and UDS. 3. Advised to resume home medication. If needed, consider further adjustment of medication. The patient to attend all the programing, group therapy, individual therapy, and structured milieu. Treatment goal to attain euthymic mood, gain insight into his problem, and learn coping Unit #: [id number] #: [id number] Patient: MALACHI VALENTIN skills. DISCHARGE PLAN Plan to stabilize the patient and consider followup in outpatient program. ESTIMATED LENGTH OF STAY 5 days. Dictated by... Nicolás Randolph M.D. ERENDIRA/marichuy TD: 03/18/2017 17:01 JOB #: [id number] PSYCHIATRIC ASSESSMENT Page 1 of 1 X Nicolás Randolph MD PSYCHIATRIC ASSESSMENT
--- NOTE | ~2017-03-16 | PN ---
Unit #: [id number] #: [id number] Patient: TAMIA VALENTIN [id number] [facility] [address] [place] [address] [id number] I MR#: [id number] NAME: TAMIA VALENTIN ROOM: 30 Age: 46 Sex: M Admission Date: 03/17/2017 : 1970 Attending Physician: Nicolás Randolph M.D. Admitting Physician: Nicolás Randolph M.D. Primary Care Physician: Generic Doctor Not In System [facility] PROGRESS NOTES DATE 03/18/2017 DISCUSSION Tamia is a 46-year-old male. Patient interviewed. Chart reviewed. Obtained information from nursing staff. Patient withdrawn, isolative, flat affect, guarded. Reported hearing voices. Vital signs 98.0, 106, 16, 161/91. Complete review of system unremarkable. MENTAL STATUS EXAMINATION General appearance, patient dressed casually. Attention span, concentration fair. Mood and affect sad, depressed, withdrawn. Speech monotone. Thought process concrete. Patient reported having hallucinations, voices, guarded, withdrawn. Recent and remote memory poor. Insight and judgement poor. DIAGNOSES 1. Psychosis NOS. 2. Rule out schizophrenia, chronic paranoid type. 3. Bipolar mood disorder. ASSESSMENT/PLAN Advised to continue with current medication and therapeutic protocol. If needed, consider further adjustment of medication. Dictated by... Tom Nur/gris TD: 03/18/2017 16:41 JOB #: [id number] Unit #: [id number] #: [id number] Patient: TAMIA VALENTIN [facility] PROGRESS NOTES Page 1 of 1 X Nicolás Randolph MD PROGRESS NOTE
--- NOTE | ~2017-03-16 | PN ---
Unit #: [id number] #: [id number] Patient: TAMIA VALENTIN [id number] [facility] [address] [place] [address] [id number] I MR#: [id number] NAME: TAMIA VALENTIN ROOM: 30 Age: 46 Sex: M Admission Date: 03/17/2017 : 1970 Attending Physician: Nicolás Randolph M.D. Admitting Physician: Nicolás Randolph M.D. Primary Care Physician: Generic Doctor Not In System [facility] PROGRESS NOTES DATE OF SERVICE 03/19/2017 DISCUSSION Tamia is a 46-year-old male seen on 03/19/2017. Patient interviewed, chart reviewed. Obtained information from nursing staff. Patient reported still feeling sad, depressed, hearing voices. Vital signs 97.8, 63, 15, 173/104. Complete review of systems unremarkable. MENTAL STATUS EXAMINATION General appearance, patient dressed casually. Attention span and concentration poor. Oriented to place and person. Mood and affect sad, depressed. Speech monotone. Thought process concrete. Patient reported suicidal ideation, hallucination, withdrawn, isolative. Recent and remote memory poor. Insight and judgement poor. DIAGNOSES Schizoaffective disorder bipolar type. ASSESSMENT/PLAN Advise to continue with current medication and therapeutic protocol. If needed consider further adjustment of medication. Dictated by... Tom Nur/michelle TD: 03/22/2017 00:15 JOB #: [id number] [facility] PROGRESS NOTES Page 1 of 1 X Nicolás Randolph MD X PROGRESS NOTE
--- NOTE | ~2017-03-16 | PN ---
Unit #: [id number] #: [id number] Patient: TAMIA ALVARADO [id number] [facility] [address] [place] [address] [id number] MR#: [id number] NAME: TAMIA ALVARADO ROOM: [facility] Age: 46 Sex: M Admission Date: 03/17/2017 : 1970 Attending Physician: Nicolás Randolph M.D. Admitting Physician: Nicolás Randolph M.D. Primary Care Physician: Generic Doctor Not In System [facility] PROGRESS NOTES DATE OF SERVICE: 03/20/2017 DISCUSSION Tamia Alvarado is a 46-year-old male, seen on 03/20/2017. The patient interviewed, chart reviewed, and obtained information from nursing staff. The patient continues to be isolative, flat affect, and guarded, but denied any thoughts of harming self or others. Vital signs; temperature 97.7, heart rate 92, respiratory rate 16, and blood pressure 157/98. REVIEW OF SYSTEMS Complete review of systems unremarkable. MENTAL STATUS EXAMINATION General appearance, the patient dressed casually. Attention span and concentration, fair. Oriented in time, place, and person. Mood and affect; withdrawn, isolative, and guarded. Speech, monotone. Thought process, concrete. The patient denied any thoughts of harming self or others. Recent and remote memory, poor. Insight and judgment, poor. DIAGNOSES Schizophrenia, chronic paranoid type versus bipolar mood disorder. ASSESSMENT AND PLAN Advised to continue with current medication and therapeutic protocol. If needed, consider further adjustment of medication. Dictated by... Tom Nur/marichuy TD: 03/21/2017 19:01 JOB #: [id number] Unit #: [id number] #: [id number] Patient: TAMIA ALVARADO [facility] PROGRESS NOTES Page 1 of 1 X Nicolás Randolph MD PROGRESS NOTE
--- NOTE | ~2017-03-16 | HP ---
Unit #: [id number] #: [id number] Patient: TAMIA VALENTIN [id number] [place] [address] [id number] I MR#: [id number] NAME: TAMIA VALENTIN ROOM: 30 Age: 46 Sex: M Admission Date: 03/17/2017 : 1970 Attending Physician: Nicolás Randolph M.D. Admitting Physician: Nicolás Randolph M.D. Primary Care Physician: Generic Doctor Not In System HISTORY AND PHYSICAL HISTORY OF PRESENT ILLNESS Tamia is a 46 year old admitted back to [facility] after a brief admission to medical hospital because of his out of control blood pressure. PAST MEDICAL HISTORY 1. High blood pressure, not controlled. 2. Obesity. 3. Hyperlipidemia. 4. Hypertensive cardiomyopathy. 5. Degenerative disc disease. PAST SURGICAL HISTORY Nothing reported. ALLERGIES No known drug allergies. SOCIAL HISTORY He denies cigarettes, alcohol and illicit drug use. FAMILY HISTORY Medically noncontributory. REVIEW OF SYSTEMS CONSTITUTIONAL: No fever or chills. HEENT: Denies any sore throat, ear pain or runny nose. CARDIOVASCULAR: Denies chest pain, irregular heart rhythm or palpitations. CHEST: Denies shortness of breath or cough. No hemoptysis. GASTROINTESTINAL: Denies nausea, vomiting, diarrhea or chronic constipation. ENDOCRINE: Denies history of increased thirst or urination. No recent significant weight loss or gain. GENITOURINARY: Denies dysuria, frequency, or hematuria. SKIN: Denies any rashes. HEMATOLOGIC: Denies history of increased bleeding or bruising. MUSCULOSKELETAL: Denies any hot, swollen joints. No generalized muscle pain. NEUROLOGIC: Denies problems with vision or speech. No frequent, severe headaches. No numbness, tingling or weakness in any extremities. Denies loss of bladder or bowel control. CURRENT MEDICATIONS 1. Trazodone 75 mg q.h.s. Unit #: [id number] #: [id number] Patient: TAMIA VALENTIN 2. Zyprexa 10 mg q.h.s. 3. Vistaril 25 mg t.i.d. 4. Hydralazine 100 mg t.i.d. 5. Catapres 0.3 mg t.i.d. 6. Zoloft 100 mg daily. 7. Procardia XL 90 mg daily. 8. Spironolactone 25 mg daily. 9. Coreg 25 mg b.i.d. 10. Zanaflex 2 mg t.i.d. 11. Cogentin 2 mg q.h.s. 12. Milk of Magnesia p.r.n. 13. Maalox p.r.n. 14. Tylenol p.r.n. PHYSICAL EXAMINATION GENERAL: Alert, well-nourished, in no apparent distress. VITAL SIGNS: Blood pressure 160/90, heart rate 80, respirations 16, temperature 98.6. WEIGHT: 218. HEIGHT: 5 feet 9 inches. SKIN: Warm and dry without rash or lesion. HEENT: Normocephalic. TMs not viewed. Oral and nasal passages clear. Conjunctivae clear. PERRLA. EOMs intact. NECK: Supple without lymphadenopathy or thyromegaly. HEART: Regular rate and rhythm without murmur. LUNGS: Clear. ABDOMEN: Soft, nontender. : Not done. EXTREMITIES: No evidence of cyanosis, clubbing or edema. Moves all without focal deficit. NEUROLOGICAL: Grossly within normal limits. Cranial Nerves: II: Visual rodriguez are intact. III, IV AND : Extraocular movements are intact. Pupils are equal, round and reactive to light. V: Facial sensation is grossly normal. VII: Facial movements and expression are normal. VIII: Auditory acuity grossly intact. IX, X: Uvula is midline. Phonation is normal. XI: Patient shrugs shoulders and turns head normally. XII: Tongue protrudes in the midline. Sensory and Motor Function: Sensory and motor sensation is grossly normal. Motor: moves all extremities well. Coordination: Gait is normal. Deep Tendon Reflexes: Intact. IMPRESSION 1. Psychiatric admission. 2. High blood pressure, borderline control. RECOMMENDATIONS PSYCHIATRIC: Per psychiatrist. MEDICAL: 1. See no contraindication to participate in facility's activities. 2. Continue hydralazine, Catapres, Procardia, spironolactone and Coreg. Monitor blood pressure q. shift. MEDICAL PROGNOSIS Good. MEDICAL CONDITION Unit #: [id number] #: [id number] Patient: TAMIA VALENTIN Stable. Dictated by... Tami Duque P.A.-C. for Tom Bagley/gris TD: 03/18/2017 20:47 JOB #: [id number] HISTORY AND PHYSICAL Page 1 of 1 X Tami Duque HISTORY AND PHYSICAL
== END 2017-03-21 16:30 | disposition home or self-care (01) | DRG 885 ==
LOC: P1S 03-17 15:00 → POF 03-18 01:19 → P1S 03-18 01:20
DX: F20.0 Paranoid schizophrenia (principal); I11.9 Hypertensive heart disease without heart failure; R45.851 Suicidal ideations; F29 Unspecified psychosis not due to a substance or known physiological condition; I10 Essential (primary) hypertension; F31.9 Bipolar disorder, unspecified; E66.9 Obesity, unspecified; E78.5 Hyperlipidemia, unspecified